=== PATIENT | female | born 2000 | race African-American/Black ===

== ENCOUNTER 2022-03-04 03:25 | Emergency (ER) | payer MEDICARE ==
[~2022-03-04] VITALS: Ht 162.6 cm; Wt 49.1 kg
[2022-03-04] MEDS ORDERED: IBUPROFEN 600MG TABLET PO ONE (05:45)
[2022-03-04 07:26] LABS: CHLORIDE 108 mEq/L (98-107)
[2022-03-04 07:28] LABS: BASOPHILS % 0.5 % (0.0-2.0); EOSINOPHILS % 0.2 % (0.0-5.0); LYMPHOCYTES % 45.3 % (20.0-50.0); MEAN CORPUSCULAR HEMOGLOBIN 30.3 pg (28.0-32.0); MEAN CORPUSCULAR VOLUME 90.6 fL (81.0-99.0); MEAN PLATELET VOLUME 7.7 fl (7.4-10.4); MONOCYTES % 5.8 % (2.0-8.0); NEUTROPHILS % 48.2 % (40.0-76.0); PLATELET 255 x1000/uL (130-400); RED BLOOD CELL COUNT 4.63 mill/uL (4.2-5.4); RED CELL DISTRIBUTION WIDTH 12.7 % (11.6-14.6)
[2022-03-04 08:32] LABS: BG BASE EXCESS -2.1 mmol/L (-2.0-2.0); BG CARBOXYHEMOGLOBIN 0.3 % (0.5-1.5); BG DEOXYHEMOGLOBIN 1.1 % (0.0-5.0); BG FRACTION INSPIRED OXYGEN 21; BG HCO3 ACT 19.2 mmol/L (22.0-26.0); BG METHEMOGLOBIN 0.1 % (0.0-1.5); BG OXYGEN SATURATION 98.9 % (92.0-98.5); BG OXYHEMOGLOBIN 98.5 % (94.0-97.0); BG PCO2 24.7 mmHg (35.0-45.0); BG PH 7.509 (7.350-7.450); BG PO2 147.9 mmHg (75.0-100.0); BG SAMPLE SITE RIGHT BRACHIAL; BG TOTAL HEMOGLOBIN 13.6 g/dL (12.0-18.0); BG VENT MODE ROOM AIR
[2022-03-04 09:10] VITALS: BP 119/86
== END 2022-03-04 09:11 | disposition home or self-care (01) ==
LOC: ER 03:25
DX: R07.89 Other chest pain (principal); R00.2 Palpitations; R06.02 Shortness of breath
CPT/HCPCS: 36415; 36600; 71045; 80048; 81025; 82375; 82805; 84484; 85025; 93005; 99285